=== PATIENT | female | born 1995 | race Caucasian/White ===

== ENCOUNTER 2018-12-09 12:19 | Emergency (ER) | payer OTHER ==
[~2018-12-09] VITALS: Ht 157.5 cm; Wt 61.9 kg
[2018-12-09 12:24] VITALS: BP 132/85
[2018-12-09] MEDS ORDERED: KETOROLAC 60 MG/2 ML VIAL IM ONE (12:30)
[2018-12-09 13:31] VITALS: BP 132/85
== END 2018-12-09 13:31 | disposition home or self-care (01) ==
LOC: MED 12:19
DX: M25.562 Pain in left knee (principal)
CPT/HCPCS: 96372; 99283; J1885